=== PATIENT | female | born 1995 | race African-American/Black ===

== ENCOUNTER 2019-09-27 11:36 | Emergency (ER) | payer MEDICAID, OTHER ==
[~2019-09-27] VITALS: Ht 162.6 cm; Wt 60.0 kg
[2019-09-27] MEDS ORDERED: ONDANSETRON HCL 4 MG/2 ML VIAL IM ONE (12:00)
[2019-09-27] MEDS ORDERED: LORazepam 2 MG/ML VIAL IVP ONE (12:00)
[2019-09-27] MEDS ORDERED: ONDANSETRON HCL 4 MG/2 ML VIAL IVP ONE (12:00)
[2019-09-27] MEDS ORDERED: LORazepam 2 MG/ML VIAL IM ONE (12:00)
[2019-09-27 12:25] LABS: EOSINOPHILS % (AUTO) 0.1 % (1.0-6.0); HEMATOCRIT 37.5 % (36-46); LYMPHOCYTES # (AUTO) 1.7 K/uL (1.0-4.8); LYMPHOCYTES % (AUTO) 21.7 % (22.0-44.0); MEAN CORPUSCULAR HEMOGLOBIN 29.7 pg (26.0-34.0); MEAN CORPUSCULAR VOLUME 93 fL (80-100); MONOCYTES # (AUTO) 0.7 K/uL (0.1-1.0); NEUTROPHILS # (AUTO) 5.2 K/uL (1.8-7.7); NEUTROPHILS % (AUTO) 68.2 % (40.0-70.0); PLATELET COUNT (AUTO) 201 K/uL (150-450); RED BLOOD CELL COUNT(AUTO) 4.04 MIL/uL (4.00-5.20); RED CELL DISTRIBUTION WIDTH 14.3 % (11.5-14.5)
[2019-09-27 12:47] LABS: ANION GAP 12 mmol/L (8-16); CARBON DIOXIDE 25 mmol/L (22-29); CHLORIDE 101 mmol/L (98-107); CREATININE 1.01 mg/dL (0.60-1.30); GLOMERULAR FILTR. RATE CALC > 60 mL/min (>60); GLUCOSE,RANDOM 108 mg/dL (70-110); POTASSIUM 3.6 mmol/L (3.5-5.1); SODIUM SERUM 138 mmol/L (136-145); UREA NITROGEN, BLOOD 11 mg/dL (7-18)
[2019-09-27 12:58] LABS: ALANINE AMINOTRANSFERASE 20 U/L (12-78); ALBUMIN 4.3 g/dL (3.4-5.0); ALKALINE PHOSPHATASE 52 U/L (46-116); ASPARTATE AMINOTRANSFERASE 20 U/L (15-37); BILIRUBIN,TOTAL 0.5 mg/dL (0.1-1.0); TOTAL PROTEIN, SERUM 8.3 g/dL (6.4-8.2)
[2019-09-27 13:18] VITALS: BP 130/82
[2019-09-27 13:19] LABS: HCG,QUANTITATIVE < 1 mIU/mL (0-6)
== END 2019-09-27 14:31 | disposition home or self-care (01) ==
LOC: EMS 11:37
DX: F11.10 Opioid abuse, uncomplicated (principal); F12.10 Cannabis abuse, uncomplicated; F41.9 Anxiety disorder, unspecified
CPT/HCPCS: 36415; 80053; 84702; 85025; 93005; 96374; 96375; 99284; J2060; J2405

== ENCOUNTER 2022-08-28 18:08 | Emergency (ER) | payer MEDICAID, OTHER ==
[~2022-08-28] VITALS: Ht 170.2 cm; Wt 60.0 kg
[2022-08-28] MEDS ORDERED: METO-408 PO (18:13)
[2022-08-28] MEDS ORDERED: LOSA-381 PO (18:13)
[2022-08-28] MEDS ORDERED: CHOL200074 PO (18:13)
[2022-08-28] MEDS ORDERED: EMPA25TA3 PO (18:13)
[2022-08-28] MEDS ORDERED: OMEP20CA12 PO (18:13)
[2022-08-28] MEDS ORDERED: WARF2TAB30 PO (18:13)
[2022-08-28] MEDS ORDERED: MEDR150V13 IM (18:14)
[2022-08-28 21:03] VITALS: BP 119/69
== END 2022-08-28 21:24 | disposition home or self-care (01) ==
LOC: EMS 18:08
DX: S60.211A Contusion of right wrist, initial encounter (principal); S00.81XA Abrasion of other part of head, initial encounter; F12.90 Cannabis use, unspecified, uncomplicated; F14.90 Cocaine use, unspecified, uncomplicated; M54.50 Low back pain, unspecified; Z98.890 Other specified postprocedural states; Y08.89XA Assault by other specified means, initial encounter; Y93.89 Activity, other specified; Y92.89 Other specified places as the place of occurrence of the external cause; Y99.8 Other external cause status
CPT/HCPCS: 70450; 72125; 99284